=== PATIENT | female | born 1975 | race Caucasian/White ===

== ENCOUNTER 2018-09-10 08:34 | Day surgery (SDC) | payer BC ==
[~2018-09-10] VITALS: Ht 162.6 cm; Wt 81.3 kg
[~2018-09-10 08:34] MED LIST: Celexa40 MG PO; DIVA125EC; LAMICTAL XR50 MG PO; LEVSOD50 PO; LEVSOD88 PO; Seroquel Xr300 MG PO; Seroquel200 MG PO; Zantac150 MG PO
--- NOTE | 2018-09-10 08:47 | NUR ---
History, Chart, Medications and Allergies reviewed before start of procedure. Patient confirms NPO status and agrees with scheduled surgery. Patient States Post-Procedure ride home has been arranged with her , Rikki.
--- NOTE | 2018-09-10 09:55 | NUR ---
09/10/18 0955 Everton Haynes PATIENT DETERMINED TO BE ASA APPROPRIATE FOR PROPOFOL SEDATION PRIOR TO START OF PROCEDURE BY DR. ELLISON. 3-LEAD EKG REVIEWED WITH PHYSICIAN PRIOR TO START OF PROCEDURE. PATIENT CONFIRMS NPO STATUS AND AGREES WITH SCHEDULED PROCEDURE. History, Chart, Medications and Allergies reviewed before start of procedure. MONITOR INTACT WITH CONTINUOUS PULSE OXIMETRY AND INTERMITTENT BP. O2 VIA N/C INTACT THROUGHOUT SEDATION/PROCEDURE, NC 4 L O2. Bite Block Placed. HURRICAINE SPRAY TO OROPHARYX IMMEDIATELY PRESEDATION.
--- NOTE | 2018-09-10 10:39 | NUR ---
"DAY SURGERY RN | DISCHARGE VSS. A/O. No issues. Steady on feet. Discharge instructions given with family present. Patient taken to front entrance for ride home. is ride home."
== END 2018-09-10 22:49 | disposition home or self-care (01) ==
LOC: ORSCMMR 08:34 → ORD 09:30 → ORSCMMR 22:49
PROVIDERS: Internal Medicine Gastroenterology
PROC: 0DB58ZX Excision of Esophagus, Via Natural or Artificial Opening Endoscopic, Diagnostic (ICD-10-PCS; principal; 2018-09-10 09:30)
PROC: 0DB68ZX Excision of Stomach, Via Natural or Artificial Opening Endoscopic, Diagnostic (ICD-10-PCS; principal; 2018-09-10 09:30)
PROC: 0DB48ZX Excision of Esophagogastric Junction, Via Natural or Artificial Opening Endoscopic, Diagnostic (ICD-10-PCS; principal; 2018-09-10 09:30)
PROC: 0DB98ZX Excision of Duodenum, Via Natural or Artificial Opening Endoscopic, Diagnostic (ICD-10-PCS; principal; 2018-09-10 09:30)
DX: R10.13 Epigastric pain (principal); F32.9 Major depressive disorder, single episode, unspecified; E03.9 Hypothyroidism, unspecified; Z79.899 Other long term (current) drug therapy; F17.210 Nicotine dependence, cigarettes, uncomplicated
CPT/HCPCS: 88305; 88342; J2704; J7120

== ENCOUNTER 2018-09-24 18:12 | Observation (INO) | payer BC, OTHER ==
[~2018-09-24] VITALS: Ht 162.6 cm; Wt 81.7 kg
[~2018-09-24 18:12] MED LIST changes: -LAMICTAL XR50 MG PO; +Lamictal150 MG PO; +QUET300 PO; -Seroquel Xr300 MG PO
[2018-09-24 18:49] LABS: BASOPHILS ABSOLUTE AUTO 0.06 K/mm3 (0.00-0.23); BASOPHILS PERCENT AUTO 1 % (0-2); EOSINOPHILS ABSOLUTE AUTO 0.22 K/mm3 (0.00-0.68); EOSINOPHILS PERCENT AUTO 2 % (0-6); Hematocrit 42.5 % (33.0-51.0); Hemoglobin 13.9 g/dL (11.5-16.0); IMMATURE GRAN ABSOLUTE AUTO 0.02 K/mm3 (0.00-0.10); IMMATURE GRAN PERCENT AUTO 0 % (0-1); LYMPHOCYTES ABSOLUTE AUTO 3.54 K/mm3 (0.84-5.20); LYMPHOCYTES PERCENT AUTO 33 % (21-46); MONOCYTES ABSOLUTE AUTO 0.45 K/mm3 (0.16-1.47); MONOCYTES PERCENT AUTO 4 % (4-13); Mean Corpuscular HGB 28.2 pg (26.0-34.0); Mean Corpuscular HGB Conc 32.7 g/dL (31.5-36.5); Mean Corpuscular Volume 86 fL (80-100); Mean Platelet Volume 9.8 fL (9.1-12.4); NEUTROPHILS ABSOLUTE AUTO 6.37 K/mm3 (1.96-9.15); NEUTROPHILS PERCENT AUTO 60 % (41-73); Platelet Count 346 K/mm3 (150-400); RDW Coefficient Variation 13.7 % (11.7-14.2); RDW Standard Deviation 43.6 fL (35.1-46.3); Red Blood Cell Count 4.93 M/mm3 (3.80-5.20); White Blood Cell Count 10.66 K/mm3 (4.00-11.30)
[2018-09-24 19:08] LABS: Alanine Aminotransfer (ALT/SGP 25 U/L (12-78); Albumin, Blood 4.6 g/dL (3.4-5.0); Albumin/Globulin Ratio 1.2 (0.8-1.8); Alk Phos 84 U/L (50-136); Anion Gap 7 mmol/L (6-16); Aspartate Aminotrans (AST/SGOT 12 U/L (12-37); Bilirubin, Total 0.2 mg/dL (0.1-1.0); Blood Urea Nitrogen 15 mg/dL (8-24); Bun/Creatinine Ratio 25.3 (12.0-20.0); CO2, Blood 22 mmol/L (21-32); Calcium, Blood 10.2 mg/dL (8.5-10.1); Chloride, Blood 108 mmol/L (98-108); Creatinine, Blood 0.59 mg/dL (0.40-1.00); Globulin, Blood 3.7 g/dL (2.2-4.0); Glomerular Filtration Rate >60 (60-); Glucose, Blood 86 mg/dL (70-99); Potassium, Blood 3.6 mmol/L (3.5-5.5); Sodium, Blood 137 mmol/L (136-145); Total Protein, Blood 8.3 g/dL (6.4-8.2)
[2018-09-24 22:48] LABS: Source, Urine Clean Catch
[2018-09-24 22:55] LABS: Bilirubin, Urine Neg (Neg); Blood, Urine 2+ (Neg); Glucose Qualitative, Urine Neg (Neg); Ketones, Urine 1+ (Neg); Leukocyte Esterase, Urine 1+ (Neg); Nitrite, Urine Neg (Neg); Protein, Urine 1+ (Neg); Urobilinogen, Urine NORM (Normal)
[2018-09-24 22:59] LABS: Appearance, Urine Clear (Clear); Color, Urine Yellow (P-Yellow)
[2018-09-24 23:02] LABS: Bacteria Mod /hpf; Squamous Epithelial Cells Mod /hpf (Few); White Blood Cells, Urine 0-2 /hpf (0-5)
--- NOTE | 2018-09-25 04:56 | NUR ---
NEW ADMIT FOR CHOLECYSTITIS. PT HAS DONE WELL SINCE ARRIVAL TO UNIT. HAS BEEN MEDICATED ONCE FOR PAIN. DENIES N/V. SURGICAL PACKET ON CHART. PT NPO. NEW 18G PLACED IN LEFT HAND. INDEPENDENT IN ROOM. CALL LIGHT IN REACH. PLAN FOR OR TODAY. WILL REPORT OFF TO NEXT SHIFT.
--- NOTE | 2018-09-25 12:34 | NUR ---
History, Chart, Medications and Allergies reviewed before start of procedure. Patient confirms NPO status and agrees with scheduled surgery. Lungs clear T/O to Auscultation. SKIN ON ABDOMEN CLEAR, WITHOUT REDNESS OR ISSUES. UPON APPLICATION OF CHLORHEXIDINE PATIENT BEGAN FEELING VERY ITCHY AND THEN HER ABDOMEN STARTED TO HAVE A BURNING SENSATION. COOL WET CLOTH PROVIDED AND PATIENT REPORTED GOOD RELIEF AFTER WASHING AND DRYING HER ABDOMEN. NO SCRATCHES NOTED UPON EXAMINATION AFTER WASHING, NO REDNESS OR RASH APPARENT. REPORT TO ELIZABETH BORJAS RN.
--- NOTE | 2018-09-25 14:59 | NUR ---
09/25/18 1459 Ronni Joshi PATIENT ON SCHEDULED ANTIBIOTICS
--- NOTE | 2018-09-25 17:20 | NUR ---
pt arrived back to room from pacu A&OX4. REPORTS PAIN 06/07 AT THIS TIME. DENIES N/V. PROVIDED WATER AND ICE CHIPS. LAP INCISIONS TO ABD X4 W/STERI STRIPS CDI. VSS. PT VERBALIZED DESIRE TO GO HOME AFTER RECOVERY PERIOD.
--- NOTE | 2018-09-25 18:24 | NUR ---
SUMMARY PT VOIDED AND PASSED SMALL AMT FLATUS. TOLERATING CLEAR LIQUIDS. REPORTS TOLERABLE PAIN. AWAITING SPOUSE'S RETURN TO AMBULATE IN [place]. GAVE PRESCRIPTION TO SPOUSE TO FILL. PT PLANNING TO DISCHARGE AFTER POST OP VS COMPLETE.
[2018-09-25] MEDS ORDERED: Norco 5-325 Ta1 EACH PO (19:09)
--- NOTE | 2018-09-25 20:03 | NUR ---
PT DISCHARGED TO HOME WITH SPOUSE IN PERSONAL VEHICLE. D/C INSTRUCTIONS GIVEN, WORK NOTE PRESCRIPTION INCLUDED. PT'S PAIN MEDICATIONS ALREADY PICKED UP FROM THE PHARMACY PER SPOUSE. PT ENCOURAGED TO CALL WITH ANY QUESTIONS, REMINDED OF FOLLOW UP CALL AND APPOINTMENT. IV REMOVED.
== END 2018-09-25 20:07 | disposition home or self-care (01) ==
LOC: ER 18:12 → SURS 18:13 → ER 20:44 → SURS 20:44
PROVIDERS: Physician Assistant; ADMIT Surgery
PROC: BF13YZZ Fluoroscopy of Gallbladder and Bile Ducts using Other Contrast (ICD-10-PCS; 2018-09-25)
PROC: 0FT44ZZ Resection of Gallbladder, Percutaneous Endoscopic Approach (ICD-10-PCS; principal; 2018-09-25 13:00)
DX: K80.10 Calculus of gallbladder with chronic cholecystitis without obstruction (principal); K21.9 Gastro-esophageal reflux disease without esophagitis; F31.9 Bipolar disorder, unspecified; F43.12 Post-traumatic stress disorder, chronic; E03.9 Hypothyroidism, unspecified; F17.210 Nicotine dependence, cigarettes, uncomplicated; Z79.899 Other long term (current) drug therapy; Z91.040 Latex allergy status; Z88.5 Allergy status to narcotic agent
CPT/HCPCS: 36415; 74300; 76705; 80053; 81001; 81025; 83690; 85025; 87086; 88304; 96365; 96375; 99285-25; C1729; J0295; J1100; J1170; J1885; J2250; J2405; J2704; J2710; J3010; J7030; J7120

== ENCOUNTER 2025-01-04 23:08 | Emergency (ER) | payer OTHER ==
[~2025-01-04] VITALS: Ht 162.6 cm; Wt 80.3 kg
[~2025-01-04 23:08] MED LIST changes: +Norco 5-325 Ta1 EACH PO
[2025-01-04 23:30] VITALS: BP 136/86
== END 2025-01-05 00:42 | disposition home or self-care (01) ==
LOC: ER 23:08
DX: Z47.89 Encounter for other orthopedic aftercare (principal); Z91.040 Latex allergy status; Z79.899 Other long term (current) drug therapy
CPT/HCPCS: 99282